=== PATIENT | female | born 1990 | race Caucasian/White ===

== ENCOUNTER 2016-05-17 23:12 | Emergency (ER) | payer OTHER ==
[~2016-05-17 23:12] MED LIST: ELIMITE60 GM TOP; PHENERGAN25 MG PO
== END 2016-05-18 01:40 | disposition home or self-care (01) ==
LOC: CED 23:12
DX: T40.1X1A Poisoning by heroin, accidental (unintentional), initial encounter (principal); F32.9 Major depressive disorder, single episode, unspecified; Z86.19 Personal history of other infectious and parasitic diseases; F17.210 Nicotine dependence, cigarettes, uncomplicated
CPT/HCPCS: 99282

== ENCOUNTER 2016-06-03 15:11 | Inpatient (IN) | payer OTHER ==
--- NOTE | ~2016-06-03 | PA ---
Unit #: [id number] #: [id number] Patient: BETH DIXON N [id number] [facility] [address] [place] [address] [id number] I MR#: [id number] NAME: BETH DIXON. ROOM: P181 Age: 26 Sex: F Admission Date: 06/03/2016 : 1990 Date of Assessment: 06/03/2016 Attending Physician: Reynaldo Casanova M.D. Admitting Physician: Reynaldo Casanova M.D. Primary Care Physician: Yasmin Fall Aprn PSYCHIATRIC ASSESSMENT INFORMANTS The patient reliability, fair and chart reliability, good. CHIEF COMPLAINT Substance abuse, depression. HISTORY OF PRESENT ILLNESS Ms. Beth Dixon is a 26-year-old female, presented for detox. The patient reported currently brought by marketing and communications officer, who made her come when she admitted to using drugs. The patient reported she relapsed 3 weeks ago after being sober for 4 months. The patient's longest period of sobriety 2-1/2 years, 2010 - 2012. The patient reported IV drug use and IV meth. Currently, the patient reports using IV heroin use of 1 g last night. The patient reported using IV meth 30 dollar worth last 2 days ago. The patient reports that she is sick of living like this, sometimes thinks that dying would be a better. The patient reportedly having withdrawal symptom, extremely drowsy and lethargic, falling asleep. The patient was nodding. The patient has not slept in the last several days. The patient reported that she is having muscle aches, pains, currently elevated pulse, restlessness extreme when falling asleep, picking on her skin. The patient denied any homicidal ideation. No delusions, needing inpatient admission at this time for psychiatric stabilization. PAST PSYCHIATRIC HISTORY Remarkable for history of previous treatment. [facility], [facility], [facility]. The patient was last treated in 2008 at [facility] for polysubstance abuse. FAMILY HISTORY AND SOCIAL HISTORY Poor support system currently having legal problems as mentioned above. No known history of any abuse. MEDICAL HISTORY Remarkable for history of hepatitis C. Musculoskeletal; muscle strength and tone, no atrophy or abnormal movement. Gait normal. MEDICATION HISTORY None. ALLERGIES No known drug allergies. Unit #: [id number] #: [id number] Patient: BETH DIXON SUBSTANCE ABUSE HISTORY The patient reported tobacco use, age of onset 9; crack cocaine, age of onset 15; opioid, age of onset 18; amphetamine, age of onset 15; benzodiazepine, age of onset 15; methadone, age of onset 20. The patient reported history of blackout, HIV, history of hepatitis, withdrawal symptom, IV drug use. The patient reported having symptoms such as nervousness, irritability, joint aches, elevated pulse, restlessness, enlarged pupils, tired, yawning. REVIEW OF SYSTEMS HEENT: Eyes, clear. Ears, nose, mouth, and throat; clear. CARDIOVASCULAR: Unremarkable. RESPIRATORY: Unremarkable. GI: Unremarkable. : Unremarkable. SKIN: Unremarkable. LYMPH NODE: Unremarkable. NEUROLOGIC: Unremarkable. ENDOCRINE: Unremarkable. HEMATOLOGIC: Unremarkable. ALLERGIC/IMMUNOLOGIC: Unremarkable. MUSCULOSKELETAL: Muscle strength and tone, no atrophy or abnormal movement. Gait normal. MENTAL STATUS EXAMINATION CONSTITUTIONAL: Measurement of vital signs; temperature is 97.5, pulse 80, respirations 16, oxygen saturation 98%, blood pressure 105/60, height is 5 feet 2 inches, weight 115 pounds. GENERAL APPEARANCE: The patient dressed casually. The patient did not show any facial deformity except for multiple lovelace on her face from picking on her skin. MUSCULOSKELETAL: Please see above. PSYCHIATRIC EXAMINATION Description of speech; slow. Description of thought process, circumstantial. Description of association, guarded paranoid. Description of abnormal psychotic thinking, reported having suicidal ideation, guarded. Flat affect, sad dysphoric. Mood lability, substance abuse. Description of the patient's judgment, concerning everyday activity, poor. Social situation, poor. Concerning psychiatric condition, poor. Complete mental status examination; oriented in time, place, and person. Recent and remote memory, poor. Attention span and concentration, fair. Language, able to name object, and repeat phrases. Fund of knowledge, aware of current event, passive vocabulary, intact. Mood and affect, sad and dysphoric. Insight and judgment, fair to poor. ASSETS AND LIABILITIES Assets; the patient is articulate and able to take care of her ADL. Liability; history of depression and substance abuse. ADMITTING DIAGNOSES Psychiatric: 1. Methamphetamine use disorder, severe, F15.20. 2. Opioid use disorder, severe, F11.20. 3. Mood disorder, not otherwise specified, F32.9. Unit #: [id number] #: [id number] Patient: BETH DIXON Secondary diagnosis: Deferred. Medical diagnosis: Hepatitis C. Stressors: Psychosocial stressors. PSYCHIATRIC PLAN AND TREATMENT GOAL AND DISCHARGE PLAN 1. Advised to admit the patient on the inpatient unit. Provide safe, supportive, and structured environment. 2. Ordered labs; CBC, CMP, UA, UDS, T4, TSH, RPR. 3. Detox protocol and detox monitoring. If needed, consider further adjustment of medication. The patient to attend all the programing on the inpatient unit. 4. Treatment goal; to attain euthymic mood, gain insight into her problem, and learn coping skills. 5. Discharge plan; plan to stabilize the patient and consider followup in outpatient program. ESTIMATED LENGTH OF STAY 3 to 5 days. Dictated by... Reynaldo Casanova M.D. ARYAN/mars TD: 06/04/2016 16:23 JOB #: [id number] PSYCHIATRIC ASSESSMENT Page 1 of 1 X Reynaldo Casanova MD X PSYCHIATRIC ASSESSMENT
--- NOTE | ~2016-06-03 | DS ---
Unit #: [id number] #: [id number] Patient: MANUEL RAYA [id number] [place] [address] [id number] I MR#: [id number] NAME: MANUEL RAYA. ROOM: 81 Age: 26 Sex: F Admission Date: 06/03/2016 : 1990 Discharge Date: 06/05/2016 Attending Physician: Reynaldo Casanova M.D. Primary Care Physician: Yasmin Fall Aprn DISCHARGE SUMMARY REASON FOR ADMISSION Methamphetamine abuse and depression. DIAGNOSTIC STUDIES LABORATORY RESULTS: Urine drug screen positive for cocaine, amphetamines, and opioids. HOSPITAL COURSE The patient was admitted to inpatient unit on . The patient was treated with group therapy, individual therapy, and medication management. The patient responded well with the above modalities of treatment. The patient was able to maintain safe behavior, compliant, and cooperative. Subsequently, the patient was discharged with a plan to follow up in outpatient program. DISCHARGE MEDICATIONS Neurontin 300 mg t.i.d. for severe anxiety and Bactroban topical b.i.d. for skin infection. DISCHARGE DIAGNOSES Psychiatric: 1. Methamphetamine use disorder, severe, F15.20. 2. Opioid use disorder, severe, F11.20. 3. Mood disorder, not otherwise specified, F32.9. Secondary diagnosis: Deferred. Medical diagnosis: Hepatitis C. Stressors: Psychosocial stressors. DISCHARGE INSTRUCTIONS The patient is to follow up in outpatient clinic as per manager social media. CONDITION ON DISCHARGE The patient was pleasant and cooperative. Denied any psychotic symptom or any suicidal ideation. PROGNOSIS Guarded. DIET AND ACTIVITY As tolerated. Unit #: [id number] #: [id number] Patient: MANUEL RAYA Dictated by... Reynaldo Casanova M.D. SZC/mars TD: 06/05/2016 19:25 JOB #: [id number] DISCHARGE SUMMARY Page 1 of 1 X Reynaldo Casanova MD DISCHARGE SUMMARY
--- NOTE | ~2016-06-03 | HP ---
Unit #: [id number] #: [id number] Patient: BETH RAYA [id number] [place] [address] [id number] I MR#: [id number] NAME: BETH RAYA. ROOM: P181 Age: 26 Sex: F Admission Date: 06/03/2016 : 1990 Attending Physician: Reynaldo Casanova M.D. Admitting Physician: Reynaldo Casanova M.D. Primary Care Physician: Yasmin Fall Aprn HISTORY AND PHYSICAL HISTORY OF PRESENT ILLNESS Beth is a 26 year old admitted to [facility] because of her drug use which includes IV heroin and methamphetamine. PAST MEDICAL HISTORY 1. Long history of illicit substance abuse to include IV drugs. 2. Hepatitis C. PAST SURGICAL HISTORY Nothing reported. ALLERGIES No known drug allergies. SOCIAL HISTORY Smokes 1 pack per day. Drinks alcohol on occasion. Admits to a long history of illicit substance abuse to include IV meth and heroin. FAMILY HISTORY Medically noncontributory. REVIEW OF SYSTEMS CONSTITUTIONAL: No fever or chills. HEENT: Denies any sore throat, ear pain or runny nose. CARDIOVASCULAR: Denies chest pain, irregular heart rhythm or palpitations. CHEST: Denies shortness of breath or cough. No hemoptysis. GASTROINTESTINAL: Denies nausea, vomiting, diarrhea or chronic constipation. ENDOCRINE: Denies history of increased thirst or urination. No recent significant weight loss or gain. GENITOURINARY: Denies dysuria, frequency, or hematuria. SKIN: Denies any rashes. HEMATOLOGIC: Denies history of increased bleeding or bruising. MUSCULOSKELETAL: Denies any hot, swollen joints. No generalized muscle pain. NEUROLOGIC: Denies problems with vision or speech. No frequent, severe headaches. No numbness, tingling or weakness in any extremities. Denies loss of bladder or bowel control. CURRENT MEDICATIONS Detox protocol. PHYSICAL EXAMINATION Unit #: [id number] #: [id number] Patient: BETH RAYA GENERAL: Alert, appearing much older than her stated age of 26, no apparent distress. VITAL SIGNS: Blood pressure 110/62, heart rate 80, respirations 16, temperature 98.6. WEIGHT: 115. HEIGHT: 5 feet 2 inches. SKIN: Warm and dry without rash. She has multiple circular scabbed areas on her face, neck, arms and legs. Most of these areas have scabbed over. HEENT: Normocephalic. TMs not viewed. Oral and nasal passages clear. Conjunctivae clear. PERRLA. EOMs intact. NECK: Supple without lymphadenopathy or thyromegaly. HEART: Regular rate and rhythm without murmur. LUNGS: Clear. ABDOMEN: Soft, nontender. : Not done. EXTREMITIES: No evidence of cyanosis, clubbing or edema. Moves all without focal deficit. NEUROLOGICAL: Grossly within normal limits. Cranial Nerves: II: Visual land are intact. III, IV AND : Extraocular movements are intact. Pupils are equal, round and reactive to light. V: Facial sensation is grossly normal. VII: Facial movements and expression are normal. VIII: Auditory acuity grossly intact. IX, X: Uvula is midline. Phonation is normal. XI: Patient shrugs shoulders and turns head normally. XII: Tongue protrudes in the midline. Sensory and Motor Function: Sensory and motor sensation is grossly normal. Motor: moves all extremities well. Coordination: Gait is normal. Deep Tendon Reflexes: Intact. IMPRESSION 1. Psychiatric admission. 2. Multiple sores. These are areas that she picks when she is high. RECOMMENDATIONS PSYCHIATRIC: Per psychiatrist. MEDICAL: 1. See no contraindications to participate in facility's activities. 2. Keep the areas clean with soap and water. Detox per protocol. MEDICAL PROGNOSIS Good. MEDICAL CONDITION Stable. Dictated by... Larry SotoASpike-Regino. for Gwen De Anda/ulises TD: 06/03/2016 22:02 JOB #: [id number] Unit #: [id number] #: [id number] Patient: BETH RAYA HISTORY AND PHYSICAL Page 1 of 1 X Sinai Odell HISTORY AND PHYSICAL
--- NOTE | ~2016-06-03 | CO ---
Unit #: [id number] #: [id number] Patient: BETH RAYA N [id number] [place] [address] [id number] MR#: [id number] NAME: BETH RAYA ROOM: P181 Age: 26 Sex: F Admission Date: 06/03/2016 : 1990 Attending Physician: Reynaldo Casanova M.D. Primary Care Physician: Yasmin Fall Aprn Consultation Date: 06/04/2016 CONSULTATION REPORT SUBJECTIVE Beth is a 26-year-old admitted because of her drug use. She was admitted with multiple scabbed areas across her body. These areas were described in the admission H and P. PLAN Plan will be to treat them with a warm soapy shower every day. Dictated by... Sinai Odell P.A.-C. for Gwen De Anda/mars TD: 06/06/2016 05:33 JOB #: [id number] CONSULTATION REPORT Page 1 of 1 X Sinai Odell CONSULTATION REPORT
[2016-06-05 10:34] LABS: URINE APPEARANCE TURBID; URINE BLOOD NEG (NEG); URINE COLOR DK YELLOW; URINE GLUCOSE NEG (NEG); URINE KETONE TRACE (NEG); URINE LEUKOCYTE ESTERASE NEG (NEG); URINE NITRATE NEG (NEG); URINE PROTEIN NEG (NEG)
[2016-06-05 10:53] LABS: URINE BILIRUBIN NEG (NEG)
[2016-06-05 11:31] LABS: AMPHETAMINE POS (NEG); BARBITURATES NEG (NEG); BENZODIAZEPINES NEG (NEG); COCAINE POS (NEG); MARIJUANA NEG (NEG); OPIATES POS (NEG); TRICYCLIC ANTIDEPRESSANTS NEG (NEG); U METHADONE NEG (NEG)
[2016-06-05 12:26] LABS: BASOPHIL% 0.5 % (0-2.5); EOSINOPHIL% 0.6 % (0.0-7.0); HEMATOCRIT 37.2 % (35.0-45.0); HEMOGLOBIN 12.6 gm/dL (12.0-16.0); LYMPHOCYTE# 1.2 X10e3 (1.0-3.5); LYMPHOCYTE% 24.1 % (17.0-45.0); MEAN CELL VOLUME 84.5 FL (83-96); MEAN CORPUSCULAR HEMOGLOBIN 28.7 PG (28-34); MEAN PLATELET VOLUME 7.8 FL (6.5-11.5); MONOCYTE# 0.4 X10e3 (0-1.0); NEUTROPHIL# 3.2 X10e3 (1.5-7.1); NEUTROPHIL% 66.8 % (40-75); PLATELET COUNT 306 X10e3 (140-420); RED BLOOD COUNT 4.39 X10e (3.90-5.30); RED CELL DISTRIBUTION WIDTH 12.9 % (11.0-15.5); WHITE BLOOD COUNT 4.8 X10e3 (4.0-10.5)
[2016-06-05 12:33] LABS: DIFF IND NO
[2016-06-05 12:48] LABS: ALBUMIN SERUM 3.7 g/dL (3.5-5.0); BUN/CREATININE RATIO 15.71; CALCIUM SERUM 9.4 mg/dL (8.4-10.2); CREATININE SERUM 0.7 mg/dL (0.6-1.4); GLOM FILT RATE Estimated 117.9 mL/min (>60); POTASSIUM 3.5 mmol/L (3.5-5.1); PROTEIN TOTAL SERUM 6.4 g/dL (6.0-8.3)
== END 2016-06-05 14:45 | DRG 897 ==
LOC: P1E 15:11
PROVIDERS: Psychiatry & Neurology Psychiatry
PROC: HZ2ZZZZ Detoxification Services for Substance Abuse Treatment (ICD-10-PCS; principal; 2016-06-03)
DX: F15.20 Other stimulant dependence, uncomplicated (principal); F11.20 Opioid dependence, uncomplicated; F39 Unspecified mood [affective] disorder; B19.20 Unspecified viral hepatitis C without hepatic coma
CPT/HCPCS: 80053; 80307; 81003; 84703; 85025; 86592